=== PATIENT | male | born 1950 | race Two or more races ===

== ENCOUNTER 2022-07-04 11:46 | Emergency (ER) | payer OTHER ==
[~2022-07-04] VITALS: Ht 165.1 cm; Wt 92.1 kg
--- NOTE | 2022-07-04 12:00 | NUR ---
BIBS C/O DIZZINESS AFTER WALKING [id number], DENIES DIZZINESS WHEN IMMOBILE. AMBULATORY, PLACED ON BED, BREATHING EVEN AND UNLABORED SATURATING AT 97%RA
--- NOTE | 2022-07-04 12:18 | NUR ---
BLOOD DRAWN AND SENT TO LAB.
--- NOTE | 2022-07-04 12:20 | NUR ---
TECH AT BEDSIDE FOR EKG
--- NOTE | 2022-07-04 12:26 | NUR ---
PATIENT TAKEN TO CT VIA [facility]
[2022-07-04 12:29] LABS: BASOPHILS # (AUTO) 0.1 K/uL (0.0-0.2); BASOPHILS % (AUTO) 1.3 % (0.0-2.0); EOSINOPHILS % (AUTO) 2.6 % (0.0-6.0); HEMATOCRIT 46 % (39-51); HEMOGLOBIN 15.1 g/dL (13.5-17.5); LYMPHOCYTES # (AUTO) 1.6 K/uL (0.8-4.8); LYMPHOCYTES % (AUTO) 19.7 % (20.0-44.0); MEAN CORPUSCULAR HGB CONC 33 g/dl (31.0-36.0); MEAN CORPUSCULAR VOLUME 90 fL (80-96); MONOCYTES # (AUTO) 0.7 K/uL (0.1-1.30); MONOCYTES % (AUTO) 8.7 % (2.0-12.0); NEUTROPHILS # (AUTO) 5.4 K/uL (1.8-8.9); NEUTROPHILS % (AUTO) 67.7 % (43.0-81.0); PLATELET COUNT (AUTO) 289 K/uL (150-450)
--- NOTE | 2022-07-04 12:37 | NUR ---
PT RETURNED FROM RADIOLOGY
--- NOTE | 2022-07-04 12:46 | NUR ---
URINE SAMPLE SENT TO LAB
[2022-07-04 12:49] LABS: ALANINE AMINOTRANSFERASE 97 U/L (12-78); ALBUMIN 3.6 g/dL (3.4-5.0); ALKALINE PHOSPHATASE 76 U/L (46-116); ASPARTATE AMINOTRANSFERASE 50 U/L (15-37); BILIRUBIN,DIRECT 0.2 mg/dL (0.0-0.2); BILIRUBIN,TOTAL 0.6 mg/dL (0.2-1.0); CALCIUM, SERUM 8.6 mg/dL (8.5-10.1); CARBON DIOXIDE 27 mmol/L (21-32); CREATININE 1.1 mg/dL (0.6-1.3); GLUCOSE 130 mg/dL (74-106); SODIUM SERUM 141 mmol/L (136-145); TOTAL PROTEIN, SERUM 7.9 g/dL (6.4-8.2); UREA NITROGEN, BLOOD 19 mg/dL (7-18)
[2022-07-04 13:23] LABS: BILIRUBIN,URINE NEGATIVE (NEGATIVE); COLOR,URINE YELLOW (YELLOW); LEUKOCYTE ESTERASE ,URINE NEGATIVE (NEGATIVE); NITRITE, URINE NEGATIVE (NEGATIVE); PROTEIN,URINE NEGATIVE (NEGATIVE); UGLUCOSE NEGATIVE (NEGATIVE); UROBILINOGEN,URINE 0.2 EU/dL (0.2)
[2022-07-04] MEDS ORDERED: MECL-182 PO (13:29)
--- NOTE | 2022-07-04 13:41 | NUR ---
IV removed. Catheter intact and site benign. Pressure and 4x4 applied to site. No bleeding noted.Patient discharged to home in stable condition. Written and verbal after care instructions given. Patient verbalizes understanding of instruction.
[2022-07-04 13:43] VITALS: BP 135/75
== END 2022-07-04 13:41 | disposition home or self-care (01) ==
LOC: ER 11:46
DX: R42 Dizziness and giddiness (principal)
CPT/HCPCS: 36415; 70450-TC; 71045-TC; 80048-TC; 80076-TC; 82962-TC; 85025-TC; 85730-TC

== ENCOUNTER 2022-08-18 11:36 | Emergency (ER) | payer OTHER ==
[~2022-08-18] VITALS: Ht 165.1 cm; Wt 95.3 kg
[~2022-08-18 11:36] MED LIST: MECL-182 PO
--- NOTE | 2022-08-18 12:17 | NUR ---
Patient came in to the er c/o generalized weakness and urinating alot x 3 days. On room air, breathing evenly and unlabored. Kept comfortable, will continue to monitor accordingly.
--- NOTE | 2022-08-18 12:19 | NUR ---
urine collected and sent to lab.
[2022-08-18 12:24] LABS: BASOPHILS # (AUTO) 0.1 K/uL (0.0-0.2); BASOPHILS % (AUTO) 0.9 % (0.0-2.0); EOSINOPHILS % (AUTO) 2.8 % (0.0-6.0); HEMATOCRIT 46 % (39-51); HEMOGLOBIN 15.3 g/dL (13.5-17.5); LYMPHOCYTES # (AUTO) 1.7 K/uL (0.8-4.8); LYMPHOCYTES % (AUTO) 22.2 % (20.0-44.0); MEAN CORPUSCULAR HGB CONC 33 g/dl (31.0-36.0); MEAN CORPUSCULAR VOLUME 91 fL (80-96); MONOCYTES # (AUTO) 0.6 K/uL (0.1-1.30); MONOCYTES % (AUTO) 7.6 % (2.0-12.0); NEUTROPHILS % (AUTO) 66.5 % (43.0-81.0); PLATELET COUNT (AUTO) 316 K/uL (150-450); RED BLOOD CELL COUNT(AUTO) 5.07 MIL/uL (4.5-6.0); WHITE BLOOD COUNT (AUTO) 7.6 K/uL (4.3-11.0)
--- NOTE | 2022-08-18 12:44 | NUR ---
BLADDER SCAN DONE , 999ML SCANNED , MADE AWARE
[2022-08-18 13:25] LABS: BILIRUBIN,URINE NEGATIVE (NEGATIVE); COLOR,URINE YELLOW (YELLOW); LEUKOCYTE ESTERASE ,URINE NEGATIVE (NEGATIVE); NITRITE, URINE NEGATIVE (NEGATIVE); PROTEIN,URINE NEGATIVE (NEGATIVE); UGLUCOSE NEGATIVE (NEGATIVE); UROBILINOGEN,URINE 0.2 EU/dL (0.2)
[2022-08-18 13:33] LABS: ALANINE AMINOTRANSFERASE 65 U/L (12-78); ALBUMIN 3.6 g/dL (3.4-5.0); ALKALINE PHOSPHATASE 76 U/L (46-116); ASPARTATE AMINOTRANSFERASE 38 U/L (15-37); BILIRUBIN,DIRECT 0.2 mg/dL (0.0-0.2); BILIRUBIN,TOTAL 0.6 mg/dL (0.2-1.0); CALCIUM, SERUM 9.1 mg/dL (8.5-10.1); CARBON DIOXIDE 24 mmol/L (21-32); CHLORIDE 105 mmol/L (98-107); GLUCOSE 104 mg/dL (74-106); POTASSIUM 3.9 mmol/L (3.5-5.1); SODIUM SERUM 136 mmol/L (136-145); TOTAL PROTEIN, SERUM 7.9 g/dL (6.4-8.2); UREA NITROGEN, BLOOD 13 mg/dL (7-18)
--- NOTE | 2022-08-18 15:00 | NUR ---
Rosa catherer in place. Patient discharged to home in stable condition. Written and verbal after care instructions given. Patient verbalizes understanding of instruction.
[2022-08-18 17:07] VITALS: BP 138/87
== END 2022-08-18 15:00 | disposition home or self-care (01) ==
LOC: ER 11:40
DX: R32 Unspecified urinary incontinence (principal); Z79.899 Other long term (current) drug therapy
CPT/HCPCS: 36415; 80048-TC; 80076-TC; 84484-TC; 85025-TC

== ENCOUNTER 2022-09-04 10:12 | Emergency (ER) | payer OTHER ==
[~2022-09-04] VITALS: Ht 165.1 cm; Wt 90.7 kg
--- NOTE | 2022-09-04 10:20 | NUR ---
CALLED IN ED WAITING ROOM. NO RESPONSE.
[2022-09-04 10:32] VITALS: BP 140/83
--- NOTE | 2022-09-04 10:51 | NUR ---
PROVIDED W/ NEW F/C BAG. Patient discharged to home in stable condition. Written and verbal after care instructions given. Patient verbalizes understanding of instruction.
== END 2022-09-04 10:52 | disposition home or self-care (01) ==
LOC: ER 10:19
DX: T83.038A Leakage of other urinary catheter, initial encounter (principal); Z79.899 Other long term (current) drug therapy; Y83.9 Surgical procedure, unspecified as the cause of abnormal reaction of the patient, or of later complication, without mention of misadventure at the time of the procedure

== ENCOUNTER 2025-07-27 13:00 | Inpatient (IN) | payer BC, OTHER ==
[~2025-07-27] VITALS: Ht 152.4 cm; Wt 77.1 kg
[2025-07-27 14:26] LABS: PLATELET COUNT (AUTO) 280 K/uL (150-450); RED BLOOD CELL COUNT(AUTO) 4.71 MIL/uL (4.5-6.0); RED CELL DISTRIBUTION WIDTH 14.7 % (11.5-15.0); WHITE BLOOD COUNT (AUTO) 6.5 K/uL (4.3-11.0)
[2025-07-27 14:40] LABS: ALCOHOL, BLOOD < 3 mg/dL (0-10); ASPARTATE AMINOTRANSFERASE 17 U/L (15-37); CALCIUM, SERUM 8.5 mg/dL (8.5-10.1); CREATININE 0.8 mg/dL (0.6-1.3); SODIUM SERUM 140 mmol/L (136-145); TOTAL PROTEIN, SERUM 7.6 g/dL (6.4-8.2); UREA NITROGEN, BLOOD 10 mg/dL (7-18)
[2025-07-27 16:03] LABS: APPEARANCE,URINE CLEAR (CLEAR); BLOOD, URINE NEGATIVE Ery/uL (NEGATIVE); LEUKOCYTE ESTERASE ,URINE NEGATIVE (NEGATIVE); NITRITE, URINE NEGATIVE (NEGATIVE); UGLUCOSE NEGATIVE (NEGATIVE)
[2025-07-27 16:10] LABS: AMPHETAMINE, URINE NEGATIVE (NEGATIVE); BARBITURATE, URINE NEGATIVE (NEGATIVE); BENZODIAZEPINE, URINE NEGATIVE (NEGATIVE); CANNABINOID, URINE NEGATIVE (NEGATIVE); COCCAINE, URINE NEGATIVE (NEGATIVE); OPIATE, URINE NEGATIVE (NEGATIVE)
[2025-07-27 16:31] LABS: ADD URINE CULTURE YES; SQUAMOUS EPITHELIAL CELL,UR Few /HPF (None Seen)
[2025-07-27 17:33] VITALS: O2SAT 97
[2025-07-27 20:25] VITALS: BP 131/67; TEMP 98.1; O2SAT 96
[2025-07-27] MEDS ORDERED: ACETAMINOPHEN 325 MG TABLET PO PRN (20:30)
[2025-07-27] MEDS ORDERED: TEMAZEPAM 7.5 MG CAPSULE PO PRN ×2 (20:30)
[2025-07-27] MEDS ORDERED: MAGNESIUM HYDROXIDE 30 ML UDC PO PRN (20:30)
[2025-07-27] MEDS ORDERED: MAG HYDROX/AL HYDROX/SIMETH 30 ML UDC PO PRN (20:30)
[2025-07-27] MEDS ORDERED: LORAZEPAM 0.5 MG TABLET PO PRN ×2 (20:30)
[2025-07-27] MEDS: BLOOD SUGAR DIAGNOSTIC 1 EACH STRIP IN ONE (21:45)
[2025-07-27 23:31] VITALS: BP 131/67; TEMP 98.1
[2025-07-28 08:30] VITALS: BP 108/61; TEMP 98; O2SAT 97
[2025-07-28 16:00] VITALS: BP 108/59; TEMP 98.2; O2SAT 97
[2025-07-28] MEDS: QUETIAPINE FUMARATE 25 MG TABLET PO SCH (16:31)
[2025-07-28 20:27] VITALS: BP 131/62; TEMP 97.9; O2SAT 97
[2025-07-29 08:00] VITALS: BP 137/57; TEMP 97.7; O2SAT 95
[2025-07-29 08:54] LABS: PLATELET COUNT (AUTO) 280 K/uL (150-450); RED BLOOD CELL COUNT(AUTO) 4.98 MIL/uL (4.5-6.0); RED CELL DISTRIBUTION WIDTH 14.7 % (11.5-15.0); WHITE BLOOD COUNT (AUTO) 6.3 K/uL (4.3-11.0)
[2025-07-29 09:03] LABS: CALCIUM, SERUM 8.6 mg/dL (8.5-10.1); CREATININE 1.0 mg/dL (0.6-1.3); SODIUM SERUM 141.0 mmol/L (136-145); UREA NITROGEN, BLOOD 15.0 mg/dL (7-18)
[2025-07-29 09:10] LABS: LDL 111.0 mg/dL (0-99)
[2025-07-29 20:50] VITALS: BP 110/62; TEMP 98.2; O2SAT 98
[2025-07-30 08:00] VITALS: BP 115/99; TEMP 98.1; O2SAT 98
[2025-07-30 16:00] VITALS: BP 133/66; TEMP 98.7; O2SAT 97
[2025-07-30 20:55] VITALS: BP 125/90; TEMP 98.7; O2SAT 97
[2025-07-31 08:24] VITALS: BP 120/75; TEMP 98.6; O2SAT 100
[2025-07-31] MEDS: QUETIAPINE FUMARATE 25 MG TABLET PO ONE (11:08)
[2025-07-31 15:48] VITALS: BP 123/69; TEMP 98.7; O2SAT 99
[2025-07-31] MEDS: QUETIAPINE FUMARATE 25 MG TABLET PO SCH (16:02)
[2025-07-31 20:00] VITALS: BP 136/77; TEMP 98.1; O2SAT 98
[2025-08-01 08:00] VITALS: BP 119/69; TEMP 98.1; O2SAT 98
[2025-08-01 16:00] VITALS: BP 118/64; TEMP 98.2; O2SAT 97
[2025-08-02 08:00] VITALS: BP 120/75; TEMP 97.9; O2SAT 97
[2025-08-02 16:09] VITALS: BP 124/70; TEMP 97.9; O2SAT 99
[2025-08-02 21:21] VITALS: BP 113/56; TEMP 98.2; O2SAT 96
[2025-08-03 08:00] VITALS: BP 133/71; TEMP 98.1; O2SAT 98
[2025-08-03 13:23] LABS: CALCIUM, SERUM 8.7 mg/dL (8.5-10.1); CREATININE 0.8 mg/dL (0.6-1.3); SODIUM SERUM 138.0 mmol/L (136-145); UREA NITROGEN, BLOOD 17.0 mg/dL (7-18)
[2025-08-03 13:30] LABS: PLATELET COUNT (AUTO) 280 K/uL (150-450); RED BLOOD CELL COUNT(AUTO) 4.96 MIL/uL (4.5-6.0); RED CELL DISTRIBUTION WIDTH 14.5 % (11.5-15.0); WHITE BLOOD COUNT (AUTO) 5.7 K/uL (4.3-11.0)
[2025-08-03 16:00] VITALS: BP 104/60; TEMP 98.1; O2SAT 95
[2025-08-03 20:50] VITALS: BP 115/60; TEMP 98.3; O2SAT 98
[2025-08-04 08:00] VITALS: BP 113/62; TEMP 97.3; O2SAT 98
[2025-08-04 16:00] VITALS: BP 111/77; TEMP 98; O2SAT 97
[2025-08-04 19:56] VITALS: BP 98/58; TEMP 98.1; O2SAT 96
[2025-08-05 08:00] VITALS: BP 104/62; TEMP 98.6; O2SAT 98
[2025-08-05 16:15] VITALS: BP 117/59; TEMP 98.1; O2SAT 97
[2025-08-05 20:33] VITALS: BP 110/62; TEMP 98.3; O2SAT 97
[2025-08-06 08:23] VITALS: BP 99/56; TEMP 98.1; O2SAT 96
[2025-08-06 15:22] VITALS: BP 126/62; TEMP 98.4; O2SAT 97
[2025-08-06 20:00] VITALS: BP 113/63; TEMP 98.4; O2SAT 97
[2025-08-06] MEDS: QUETIAPINE FUMARATE 25 MG TABLET PO SCH (20:35)
[2025-08-07 08:00] VITALS: BP 104/69; TEMP 98.7; O2SAT 96
[2025-08-07 16:00] VITALS: BP 115/56; TEMP 98.1; O2SAT 98
[2025-08-07] MEDS: QUETIAPINE FUMARATE 25 MG TABLET PO SCH (16:07)
[2025-08-07 20:22] VITALS: BP 115/60; TEMP 98; O2SAT 99
[2025-08-07] MEDS: QUETIAPINE FUMARATE 100 MG TABLET PO SCH (21:15)
[2025-08-08 08:00] VITALS: BP 121/60; TEMP 98.2; O2SAT 96
[2025-08-08 16:00] VITALS: BP 105/61; TEMP 98.8; O2SAT 95
[2025-08-08 21:12] VITALS: BP 107/63; TEMP 98.2; O2SAT 96
[2025-08-09 08:00] VITALS: BP 120/75; TEMP 98.1; O2SAT 95
[2025-08-09] MEDS ORDERED: MAG30ORA PO (08:42)
[2025-08-09] MEDS ORDERED: ACET325T53 PO (08:42)
== END 2025-08-09 13:30 | DRG 885 ==
LOC: ER 13:00 → GPS 18:31
PROVIDERS: ADMIT Psychiatry & Neurology Psychosomatic Medicine
DX: F29 Unspecified psychosis not due to a substance or known physiological condition (principal); R45.851 Suicidal ideations; F03.90 Unspecified dementia, unspecified severity, without behavioral disturbance, psychotic disturbance, mood disturbance, and anxiety; R41.9 Unspecified symptoms and signs involving cognitive functions and awareness; E78.5 Hyperlipidemia, unspecified
CPT/HCPCS: 36415; 70450-TC; 80048-TC; 80061-TC; 80076-TC; 81001; 82962-TC; 83735-TC; 84439-TC; 84443-TC; 85025-TC; 87081-TC; 87086-TC; 97110-TC; 97116-TC; 97530-TC; G0480